=== PATIENT | female | born 1970 | race Hispanic/Latino ===

== ENCOUNTER 2020-10-31 20:15 | Emergency (ER) | payer SELFPAY ==
[2020-10-31 21:54] VITALS: BP 147/88
[2020-10-31] MEDS ORDERED: MORPHINE 4 MG/1 ML INJ IV ONE (22:17)
[2020-10-31] MEDS ORDERED: dexAMETHasone 20 MG/5 ML VIAL IV ONE (22:17)
[2020-10-31] MEDS ORDERED: ONDANSETRON 4 MG/2 ML INJ IV ONE (22:20)
[2020-10-31 22:29] LABS: Basophils % (Auto) 0.9 % (0.0-1.8); Eosinophils # (Auto) 0.1 K/mm3 (0.0-0.4); Eosinophils % (Auto) 2.8 % (0.0-4.3); Lymphocytes # (Auto) 0.6 K/mm3 (1.2-5.4); Lymphocytes % (Auto) 16.7 % (13.4-35.0); Mean Corpuscular HGB Conc 29 % (30-34); Monocytes # (Auto) 0.3 K/mm3 (0.0-0.8); Monocytes % (Auto) 8.4 % (0.0-7.3); Platelet Count 286 K/mm3 (140-440); Red Blood Count 3.54 M/mm3 (3.65-5.03); Red Cell Distribution Width 19.9 % (13.2-15.2)
[2020-10-31 22:31] LABS: Hematocrit 23.7 % (30.3-42.9); Hemoglobin 6.8 gm/dl (10.1-14.3); Mean Corpuscular Volume 67 fl (79-97)
[2020-10-31 22:46] LABS: Alanine Aminotransferase 25 units/L (7-56); Albumin 3.2 g/dL (3.9-5); Blood Urea Nitrogen 3 mg/dL (7-17); Calcium 7.6 mg/dL (8.4-10.2); Hemolysis Index 0
[2020-10-31 22:49] LABS: BUN/Creatinine Ratio 8
[2020-10-31 23:09] LABS: Bacteria,Urine 1+ /HPF (Negative); Bilirubin,Urine NEG (Negative); Blood,Urine SM (Negative); Color,Urine Yellow (Yellow)
[2020-10-31 23:16] LABS: WBC,Urine > 182.0 /HPF (0.0-6.0)
[2020-10-31] MEDS ORDERED: ONDANSETRON 4 MG ODT TAB PO ONE (23:59)
[2020-10-31] MEDS ORDERED: predniSONE 20 MG TAB PO ONE (23:59)
[2020-10-31] MEDS ORDERED: HYDROcodone/ACETAMINOPHEN 10-325MG TAB PO ONE (23:59)
--- NOTE | 2020-11-01 01:37 | Emergency Department Report ---
ED Abdominal Pain HPI - General Chief Complaint: Abdominal Pain Stated Complaint: FEET/ARM SWELLING/LT FLANK PAIN Time Seen by Provider: 10/31/20 22:12 Source: patient Mode of arrival: Ambulatory Limitations: No Limitations - History of Present Illness Initial Comments: Patient is a 50-year-old female who is presenting with some left flank pain. Patient states she has had pain in the left upper flank for the past 2 days. States the pain is just underneath her left rib cage. It hurts worse when she coughs or moves or takes a deep breath. Patient denies any dysuria hematuria nausea vomiting diarrhea fevers chills. Patient states she is only had a minimal cough secondary to the pain. Secondarily the patient is complaining of bilateral hand pain and swelling which is chronic in nature. Patient believes she has a rheumatoid arthritis but has not been formally diagnosed. Patient states she takes gabapentin. Severity scale (0 -10): 9 - Related Data Previous Rx's Medication Instructions Recorded Last Taken Type Docusate Sodium [Colace] 100 mg PO BID #60 capsule 11/01/20 Unknown Rx Ferrous Sulfate [Ferrous Sulfate 324 mg PO BID #60 tablet.dr 11/01/20 Unknown Rx 324 MG] HYDROcodone/APAP 5-325 [[place] 1 each PO Q6HR PRN #14 tablet 11/01/20 Unknown Rx 5/325] Ondansetron [Zofran Odt] 4 mg PO Q8HR #10 tab.rapdis 11/01/20 Unknown Rx levoFLOXacin [Levaquin TAB] 500 mg PO QDAY #10 tablet 11/01/20 Unknown Rx predniSONE 10 mg PO .TAPER #21 tab 11/01/20 Unknown Rx Allergies Allergy/AdvReac Type Severity Reaction Status Date / Time aspirin Allergy Rash Verified 10/31/20 22:01 codeine Allergy Hives Verified 10/31/20 22:00 ED Review of Systems ROS: Stated complaint: FEET/ARM SWELLING/LT FLANK PAIN Other details as noted in HPI Comment: All other systems reviewed and negative ED Past Medical Hx - Past Medical History Previous Medical History?: Yes Hx Arthritis: Yes - Surgical History Past Surgical History?: Yes Hx Cholecystectomy: Yes Additional Surgical History: Gastric Bypass. Craniotomy - Social History Smoking Status: Never Smoker Substance Use Type: None - Medications Home Medications: Home Medications Medication Instructions Recorded Confirmed Last Taken Type Docusate Sodium [Colace] 100 mg PO BID #60 capsule 11/01/20 Unknown Rx Ferrous Sulfate [Ferrous Sulfate 324 mg PO BID #60 tablet.dr 11/01/20 Unknown Rx 324 MG] HYDROcodone/APAP 5-325 [[place] 1 each PO Q6HR PRN #14 tablet 11/01/20 Unknown Rx 5/325] Ondansetron [Zofran Odt] 4 mg PO Q8HR #10 tab.rapdis 11/01/20 Unknown Rx levoFLOXacin [Levaquin TAB] 500 mg PO QDAY #10 tablet 11/01/20 Unknown Rx predniSONE 10 mg PO .TAPER #21 tab 11/01/20 Unknown Rx ED Physical Exam - General Limitations: No Limitations General appearance: alert, in no apparent distress - Head Head exam: Present: atraumatic, normocephalic - Eye Eye exam: Present: normal appearance - ENT ENT exam: Present: mucous membranes moist - Neck Neck exam: Present: normal inspection - Respiratory Respiratory exam: Present: normal lung sounds bilaterally. Absent: respiratory distress, wheezes, rales, rhonchi - Cardiovascular Cardiovascular Exam: Present: regular rate, normal rhythm, normal heart sounds. Absent: systolic murmur, diastolic murmur, rubs, gallop - GI/Abdominal GI/Abdominal exam: Present: soft, distended, normal bowel sounds, other (left flank point tenderness ). Absent: tenderness, guarding, rebound - Extremities Exam Extremities exam: Present: normal inspection, joint swelling (bilateral hand swelling to jopints of fingers) - Back Exam Back exam: Present: normal inspection - Neurological Exam Neurological exam: Present: alert, oriented X3 - Psychiatric Psychiatric exam: Present: normal affect, normal mood - Skin Skin exam: Present: warm, dry, intact, normal color. Absent: rash ED Course Vital Signs 10/31/20 21:51 Temperature 97.7 F Pulse Rate 90 Respiratory 18 Rate Blood Pressure 147/88 O2 Sat by Pulse 100 Oximetry ED Medical Decision Making - Lab Data Result diagrams: 10/31/20 22:11 10/31/20 22:11 Lab Results 10/31/20 10/31/20 10/31/20 Range/Units 22:11 22:11 22:48 WBC 3.6 L (4.5-11.0) K/mm3 RBC 3.54 L (3.65-5.03) M/mm3 Hgb 6.8 L (10.1-14.3) gm/dl Hct 23.7 L (30.3-42.9) % MCV 67 L (79-97) fl MCH 19 L (28-32) pg MCHC 29 L (30-34) % RDW 19.9 H (13.2-15.2) % Plt Count 286 (140-440) K/mm3 Lymph % (Auto) 16.7 (13.4-35.0) % [place] % (Auto) 8.4 H (0.0-7.3) % Eos % (Auto) 2.8 (0.0-4.3) % Baso % (Auto) 0.9 (0.0-1.8) % Lymph # (Auto) 0.6 L (1.2-5.4) K/mm3 [place] # (Auto) 0.3 (0.0-0.8) K/mm3 Eos # (Auto) 0.1 (0.0-0.4) K/mm3 Baso # (Auto) 0.0 (0.0-0.1) K/mm3 Seg Neutrophils % 71.2 H (40.0-70.0) % Seg Neutrophils # 2.6 (1.8-7.7) K/mm3 Sodium 132 L (137-145) mmol/L Potassium 3.7 (3.6-5.0) mmol/L Chloride 101.0 (98-107) mmol/L Carbon Dioxide 22 (22-30) mmol/L Anion Gap 13 mmol/L BUN 3 L (7-17) mg/dL Creatinine 0.4 L (0.6-1.2) mg/dL Estimated GFR > 60 ml/min BUN/Creatinine Ratio 8 % Glucose 84 (65-100) mg/dL Calcium 7.6 L (8.4-10.2) mg/dL Total Bilirubin 0.50 (0.1-1.2) mg/dL AST 82 H (5-40) units/L ALT 25 (7-56) units/L Alkaline Phosphatase 214 H (35-129) units/L Total Protein 8.4 H (6.3-8.2) g/dL Albumin 3.2 L (3.9-5) g/dL Albumin/Globulin Ratio 0.6 % Urine Color Yellow (Yellow) Urine Turbidity Cloudy (Clear) Urine pH 6.0 (5.0-7.0) Ur Specific [place] 1.011 (1.003-1.030) Urine Protein 30 mg/dl (Negative) mg/dL Urine Glucose (UA) Neg (Negative) mg/dL Urine Ketones Neg (Negative) mg/dL Urine Blood Sm (Negative) Urine Nitrite Neg (Negative) Urine Bilirubin Neg (Negative) Urine Urobilinogen 2.0 (<2.0) mg/dL Ur Leukocyte Esterase Lg (Negative) Urine WBC (Auto) > 182.0 H (0.0-6.0) /HPF Urine RBC (Auto) 9.0 (0.0-6.0) /HPF Urine Bacteria (Auto) 1+ (Negative) /HPF - Radiology Data Reporting MD: Thaddeus Durand Dictation Time: October 31, 2020 23:41 Dry Roller: Not available Technical Planner Date: CT abdomen pelvis wo con INDICATION: Patient complains of LEFT sided flank pain. COMPARISON: None TECHNIQUE: Abdominal and pelvic CT exam performed. All CT scans at this location are performed using CT dose reduction for ALARA by means of automated exposure control. FINDINGS: CT ABDOMEN and PELVIS: Lung Bases: No significant abnormality. Liver: Hypoattenuating enlarged liver extending into left upper quadrant. Biliary: Gallbladder is surgically absent. Spleen: No significant abnormality. Pancreas: No significant abnormality. Adrenals: No significant abnormality. Kidneys: Minimal asymmetric left perinephric stranding. Small nonobstructing punctate left interpolar stone. Lymphatics: No lymphadenopathy. Vasculature: No significant abnormality. Bowel: Prior Yemi-en-Y gastric bypass. No significant abnormality. Normal appendix. Pelvis: Small volume of free fluid in the rectouterine pouch. No significant abnormality. Osseous Structures: No aggressive osseous lesion. Additional Findings: None IMPRESSION: 1. There is minimal left asymmetric perinephric stranding which is nonspecific but could be related to arthritis in the correct clinical setting. Nonobstructing punctate left interpolar stone is also - Medical Decision Making CT is significant for left-sided perinephric stranding consistent with pyelonephritis. Patient has significant UTI as well. Patient be started on Levaquin and does appear stable for discharge. Patient is nontoxic in appearance. Patient also be started on steroids for the hand swelling. Given primary care for follow-up. Patient also anemic however she states she has a history of chronic anemia. Denies any blood in stool or heavy periods. Critical care attestation.: If time is entered above; I have spent that time in minutes in the direct care of this critically ill patient, excluding procedure time. ED Disposition Clinical Impression: Pyelonephritis, Hand swelling, Anemia Disposition: DC-01 TO HOME OR SELFCARE Is pt being admited?: No Does the pt Need Aspirin: No Condition: Stable Instructions: Abdominal Pain (ED), Pyelonephritis, Adult, [id number], Arthritis, [id number] Referrals: MOUNA ADAN MD [Staff Physician] - 3-5 Days Time of Disposition: 01:37
--- NOTE | 2020-11-01 06:30 | Cat Scan Report ---
CT abdomen pelvis wo con INDICATION: Patient complains of LEFT sided flank pain. COMPARISON: None TECHNIQUE: Abdominal and pelvic CT exam performed. All CT scans at this location are performed using CT dose reduction for ALARA by means of automated exposure control. FINDINGS: CT ABDOMEN and PELVIS: Lung Bases: No significant abnormality. Liver: Hypoattenuating enlarged liver extending into left upper quadrant. Biliary: Gallbladder is surgically absent. Spleen: No significant abnormality. Pancreas: No significant abnormality. Adrenals: No significant abnormality. Kidneys: Minimal asymmetric left perinephric stranding. Small nonobstructing punctate left interpolar stone. Lymphatics: No lymphadenopathy. Vasculature: No significant abnormality. Bowel: Prior Yemi-en-Y gastric bypass. No significant abnormality. Normal appendix. Pelvis: Small volume of free fluid in the rectouterine pouch. No significant abnormality. Osseous Structures: No aggressive osseous lesion. Additional Findings: None IMPRESSION: 1. There is minimal left asymmetric perinephric stranding which is nonspecific but could be related t o arthritis in the correct clinical setting. Nonobstructing punctate left interpolar stone is also pr esent. 2. Diffuse hepatic steatosis. Signer Name: Thaddeus Durand MD Signed: 11/01/2020 12:41 AM Workstation Name: [id number]
--- NOTE | 2020-11-05 10:46 | Electrocardiograph Report ---
[facility] Test Date: 2020-10-31 Test Time: 22:43:04 Pat Name: FRANK GARCIA Department: Room: Gender: F Life Underwriter: NAHED : 1970 Requested By: CHRISTO VICTOR Order Number: [id number] Reading MD: Franky Merida Measurements Intervals [place] Rate: 77 P: 65 [place]: 192 QRS: 17 QRSD: 98 T: 54 QT: 430 QTc: 486 Interpretive Statements Sinus rhythm No previous ECG available for comparison Electronically Signed On 11-05-2020 10:46:04 EDT by Franky Merida
== END 2020-11-01 02:07 | disposition home or self-care (01) ==
LOC: ED 20:15
DX: N12 Tubulo-interstitial nephritis, not specified as acute or chronic (principal); M79.89 Other specified soft tissue disorders; D64.9 Anemia, unspecified; M19.90 Unspecified osteoarthritis, unspecified site; Z90.49 Acquired absence of other specified parts of digestive tract; Z98.890 Other specified postprocedural states; Z79.899 Other long term (current) drug therapy; Z88.8 Allergy status to other drugs, medicaments and biological substances
CPT/HCPCS: 36415; 74176; 80053; 81001; 85025; 99284; J7512; 93005; Q0162

== ENCOUNTER 2021-10-01 23:31 | Emergency (ER) | payer SELFPAY ==
[2021-10-01 23:49] VITALS: BP 180/117
== END 2021-10-02 03:11 | disposition left against medical advice (07) ==
LOC: ED 23:31
DX: R10.9 Unspecified abdominal pain (principal); J80 Acute respiratory distress syndrome; Z53.21 Procedure and treatment not carried out due to patient leaving prior to being seen by health care provider